=== PATIENT | female | born 1975 | race Caucasian/White ===

== ENCOUNTER 2016-11-26 12:23 | Outpatient (CLI) | payer OTHER ==
[2016-11-26 13:28] LABS: Hematocrit 42.4 % (36.0-47.0); Mean Platelet Volume 8.5 fL (7.4-10.4); Red Blood Cell (RBC) Count 4.56 mill/uL (4.20-5.40); White Blood Cell (WBC) Count 7.9 thou/uL (4.8-10.8)
[2016-11-26 13:44] LABS: Hemoglobin A1c 4.8 % (4.0-6.0)
[2016-11-26 17:51] LABS: Iron 107 ug/dL (50-170)
== END 2016-11-26 12:24 | disposition home or self-care (01) ==
LOC: BURLAB 12:23
PROVIDERS: ATTEND Family Medicine
DX: R20.0 Anesthesia of skin (principal); R79.0 Abnormal level of blood mineral
CPT/HCPCS: 36415; 82728; 83036; 83540; 83550; 84443; 85027